=== PATIENT | female | born 1930 | race Caucasian/White ===

== ENCOUNTER 2017-10-05 07:30 | Outpatient (CLI) | payer MEDICARE | END 2017-10-05 07:31 | disposition home or self-care (01) | LOC: BICMAMMO 07:30 | PROVIDERS: ATTEND Internal Medicine | DX: Z12.31 Encounter for screening mammogram for malignant neoplasm of breast (principal); R92.1 Mammographic calcification found on diagnostic imaging of breast; Z80.3 Family history of malignant neoplasm of breast; Z85.89 Personal history of malignant neoplasm of other organs and systems | CPT/HCPCS: 77063; G0202; 77067 ==

== ENCOUNTER 2020-03-01 09:53 | Inpatient (IN) | payer MEDICARE ==
[~2020-03-01 09:53] MED LIST: Iopamidol 370 76% 100 ML VIAL ONE; Iopamidol-370 76% 500 ML 1 ML ONE
--- NOTE | 2020-03-01 10:13 | CT ---
CT HEAD WITHOUT IV CONTRAST COMPARISON: 03/09/2014 HISTORY: Level 1 stroke. Right-sided weakness and facial droop. TECHNIQUE: Axial CT imaging at 5 mm intervals from vertex through skull base without contrast FINDINGS: There is suggestion of subtle diminished attenuation in the left frontal and temporal lobes with decr ease in delineation of the lambert-white junction in this region. Subtle early acute left MCA distribution infarction cannot be entirely excluded. No definitive sulcal effacement is seen to sugge st edema in this distribution. No additional acute cortical infarction is seen. There is no evidence of hemorrhage, mass effect, or midline shift. Mild cerebral volume loss is again seen. Track er system is normal in size, shape, and position for the degree of sulcal atrophy. Areas of diminished attenuation are seen in each cerebellar hemisphere suggesting remote infarctions. Visualized paranasal sinuses are clear. Osseous structures appear intact. IMPRESSION: 1. Subtle decrease in lambert-white differentiation in the distribution of the left middle cerebral scooby ry. A subtle left MCA distribution early acute infarction cannot be entirely excluded based on this exam. MRI brain would be more sensitive study of choice for further evaluation of this finding and qu estionable area of infarction. 2. 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 3. Cerebral volume loss. 4. Above findings discussed Dr. Weaver the emergency department on 03/01/2020 at 1007 hours.
[2020-03-01 10:16] LABS: #Basophils 0.1 thou/uL (0.0-0.2); #Eosinphils 0.1 thou/uL (0.0-0.7); #Lymphocytes 2.9 thou/uL (1.20-3.40); #Monocytes 0.5 thou/uL (0.11-0.59); #Neutrophils 5.9 thou/uL (1.40-6.50); %Basophils 0.6 % (0.0-1.0); %Eosinophils 0.9 % (0.0-10.0); %Lymphocytes 30.9 % (21.0-51.0); %Monocytes 5.4 % (0.0-10.0); %Neutrophils 62.1 % (42.0-75.0); Hemoglobin 14.1 g/dL (12.0-16.0); Mean Corpuscular HGB CONC 31.5 g/dL (32.0-36.0); Mean Corpuscular Hemoglobin 29.6 pg (27.0-31.0); Mean Corpuscular Volume 93.9 fL (78.0-98.0); Platelet Count 227 thou/uL (130-400); RBC Distribution Width 13.2 % (11.5-14.5); Red Blood Cell (RBC) Count 4.77 mill/uL (4.20-5.40); White Blood Cell (WBC) Count 9.5 thou/uL (4.8-10.8)
[2020-03-01 10:23] LABS: INR-International Normal Ratio 0.9; PTT 26.1 SEC (22.9-36.1); Prothrombin Time 12.6 sec (12.0-14.7)
[2020-03-01 10:37] LABS: ALT (SGPT) Less than 7 U/L (8-55); AST (SGOT) 15 U/L (5-34); Albumin 2.9 g/dL (3.4-4.8); Alkaline Phosphatase 123 U/L (40-110); Anion Gap 14 mmol/L (10-20); BUN (Urea Nitrogen) 18 mg/dL (9.8-20.1); Bilirubin, Total 0.8 mg/dL (0.2-1.2); CK (CPK) 49 U/L (29-168); Calc. Creatinine Clearance 0 mL/min (70-130); Calcium 8.4 mg/dL (7.8-10.44); Carbon Dioxide 27 mmol/L (23-31); Chloride 102 mmol/L (98-107); Estimated GFR-MDRD 53; Globulin 2.8 g/dL (2.4-3.5); Glucose 136 mg/dL (83-110); Potassium 3.7 mmol/L (3.5-5.1); Protein, Total 5.7 g/dL (6.0-8.3); Sodium 139 mmol/L (136-145)
--- NOTE | 2020-03-01 11:03 | CT ---
EXAM: CT angiogram head and neck with IV contrast and 3-D reconstructions PROVIDED CLINICAL HISTORY: Right-sided weakness and facial droop. COMPARISON: None FINDINGS: Vascular calcifications are seen in the visualized thoracic aortic arch and descending thoracic aorta . There is a normal arrangement of the great vessels at the aortic arch which are patent with minimal vascular calcifications present. The bilateral subclavian arteries, innominate artery, and bi lateral common carotid arteries are patent. Vascular calcifications are seen at the carotid artery bifurcations bilaterally. There is mild (less than 50%) stenosis involving the bilateral internal carotid arteries. The bilateral vertebral arteries are patent. The basilar artery and posterior cerebral arteries are patent bilaterally. The anterior cerebral arteries and right middle cerebral artery are patent. There is abrupt occlusion of the M1 segment of the left middle cerebral artery. There is opacificatio n of branches of the more distal left MCA. No aneurysm is seen within the limitations of the technique of this exam. There is mild pleural thickening and volume loss seen dependently within the left upper lobe with min imal linear densities in the upper lobes bilaterally likely due to mild chronic lung changes. Small hypodense lesions are seen in each lobe of thyroid gland measuring less than 1 cm with a hypode nse lesion with slight heterogeneous enhancement seen involving the posterior aspect left lobe of thyroid gland. Calcification is seen in the right lobe of thyroid gland. The bilateral parotid and submandibular glands demonstrate a normal CT appearance. Prevertebral soft tissues have a normal appearance. There is gas seen within the venous structures in the upper chest likely due to contrast injection an d placement of a peripheral intravenous catheter. Degenerative changes are seen in the cervical spine. There is fusion of the C5 and C6 vertebral kinza s. Slight anterolisthesis of C4 on C5 is present. Multilevel facet degenerative changes are identified. Moderate to severe right-sided neural foraminal narrowing is seen at the C3-4 level due t o prominent facet hypertrophic changes and uncinate process hypertrophy. Moderate to severe right-sided neural foraminal narrowing is also seen at the C4-5 level. IMPRESSION: 1. Abrupt occlusion proximal M1 segment left middle cerebral artery 2. Less than 50% degree of narrowing involving the origin and proximal internal carotid arteries bila terally. 3. Patent bilateral vertebral arteries. 4. Hypodense lesions in each lobe of the thyroid gland. 5. Above findings were discussed with Dr. Weaver in the emergency department on 03/01/2020 at [address]
[2020-03-01] MEDS ORDERED: PHENYLEPHRINE-NS 100 MCG/ML 10 ML SYRINGE ONE (11:28)
[2020-03-01] MEDS ORDERED: Dexamethasone 20 MG/5 ML VIAL ONE (11:28)
[2020-03-01] MEDS ORDERED: Ondansetron PF 4 MG/2 ML Vial ONE (11:28)
[2020-03-01] MEDS ORDERED: Succinylcholine Chloride 20 MG/ML 10 ml SYRINGE FS ONE (11:28)
[2020-03-01] MEDS ORDERED: Labetalol HCl 100 MG/20 ML VIAL SLOW IVP PRN ×2 (11:38→13:00)
[2020-03-01] MEDS ORDERED: Acetaminophen 325 MG TAB PO PRN (11:38)
[2020-03-01] MEDS ORDERED: niCARdipine 25 MG in Sodium Chloride 0.9% 250 ML 250 ML IVPB PRN (11:38)
[2020-03-01] MEDS ORDERED: Heparin 10,000 UNITS/1 ML VIAL ONE (11:38)
[2020-03-01] MEDS ORDERED: Communication Order-Pharmacy FS ONE (11:38)
[2020-03-01] MEDS ORDERED: hydrALAZINE 20 MG/ML VIAL SLOW IVP PRN ×2 (11:38→13:00)
[2020-03-01] MEDS ORDERED: Acetaminophen 650 MG Suppository PR PRN (11:38)
[2020-03-01] MEDS ORDERED: Ondansetron ODT 4 MG TAB PO PRN (11:45)
[2020-03-01] MEDS ORDERED: Ondansetron PF 4 MG/2 ML Vial IVP PRN (11:45)
[2020-03-01] MEDS ORDERED: Fentanyl 100 MCG/2 ML VIAL ONE (11:57)
[2020-03-01] MEDS ORDERED: D5 0.9% NS w/ 20 mEq KCl 1,000 ML IV SCH (12:00)
[2020-03-01] MEDS ORDERED: Communication Order-Pharmacy FS SCH (13:00)
[2020-03-01] MEDS ORDERED: niCARdipine 25 MG in Sodium Chloride 0.9% 250 ML 240 ML IVPB PRN (13:00)
[2020-03-01 14:19] LABS: Actual Bicarbonate (HCO3a) 22.4 mEq/L (22-28); Base Excess (BEa) 1.1 mEq/L (-2.0 to +3.0); CO2 Tension 27.3 mmHg (35.0-45.0); Calcium, Ionized 1.03 mmol/L (1.12-1.30); Carboxyhemoglobin (COHb) 0.8 gm% (0.0-3.0); Hemoglobin (Hb) 14.9 g/dL (12.0-16.0); O2 Tension (PaO2), arterial 151.2 mmHg (> 60.0); Potassium - ABG Lab 3.19 mmol/L (3.70-5.30); pH, Arterial 7.53 (7.35-7.45)
[2020-03-01 14:23] LABS: ALV-art Gradient 99.875 (0-20); Puncture Site ART LINE
[2020-03-01 14:37] VITALS: BMI 21.3
[2020-03-01] MEDS ORDERED: Iopamidol 370 76% 100 ML VIAL ONE (15:10)
[2020-03-01] MEDS: D5 0.9% NS w/ 20 mEq KCl 1,000 ML IV SCH (15:25)
[2020-03-01] MEDS ORDERED: fentaNYL Citrate/PF 2,000 MCG in Sodium Chloride 0.9% 60 ML IV SCH (16:25)
[2020-03-01] MEDS ORDERED: Fentanyl BOLUS 250 ML IVPB PRN (16:25)
[2020-03-01] MEDS ORDERED: DISCONTINUE PREVIOUS NARCOTIC PAIN MEDICATIONS AND BENZODIAZEPINES FS SCH (16:25)
[2020-03-01] MEDS ORDERED: Propofol BOLUS 1,000 MG/100 ML VIAL IV PRN (16:25)
[2020-03-01] MEDS ORDERED: Propofol 1,000 MG/100 ML VIAL IV PRN (16:25)
[2020-03-01] MEDS ORDERED: Morphine 2 MG/ML SYRINGE SLOW IVP PRN (16:25)
[2020-03-01] MEDS ORDERED: Ventilator Sedation Protocol 1 EACH FS SCH (16:30)
--- NOTE | 2020-03-01 17:57 | HP ---
PRIMARY CARE PHYSICIAN: [facility] in [place]. CHIEF COMPLAINT: Stroke-like symptoms. HISTORY OF PRESENT ILLNESS: The patient is an 89-year-old female with atrial fibrillation, hypertension and mild dementia, was brought into the emergency room with above complaints. The patient currently lives at home with her son, Damian, contact #[phone]. Surrogate decision maker is the daughter Zohreh Larios, contact #[phone]. The patient is independent of activities of daily living. She ambulates with the help of a walker. She was last seen normal around 09:05 a.m. Around 09:06, she was found to have right-sided facial droop along with right-sided neglect. She also had altered mentation and was not following direction. EMS was called. She was air lifted to this facility. She received tPA. The CT angiogram showed abrupt occlusion of the proximal M1 segment of the left MCA. Dr. Gaxiola attempted a neuro intervention as well. At this time, the patient is intubated on mechanical ventilation. No information is available from the patient. History is obtained from the son at the bedside. PAST MEDICAL HISTORY: 1. History of atrial fibrillation, not an anticoagulation candidate due to GI bleeding and recurrent falls. 2. Hypertension. 3. Osteoporosis with compression fractures. 4. Hyperlipidemia. 5. COPD. 6. Diverticulosis. 7. Macular degeneration. 8. Do not resuscitate. 9. Mild dementia. 10. Chronic venous stasis in bilateral lower extremities. PAST SURGICAL HISTORY: 1. Appendectomy. 2. Resection of thyroid nodule. 3. Cholecystectomy. 4. Pacemaker placement. CURRENT HOME MEDICATIONS: Family to bring accurate list of medications. ALLERGIES: NO KNOWN DRUG ALLERGIES. SOCIAL HISTORY: As discussed above. She is . No smoking, alcohol or drug use. FAMILY HISTORY: Cannot be obtained from the patient due to current mentation. REVIEW OF SYSTEMS: Cannot be obtained from the patient due to current mentation. PHYSICAL EXAMINATION: VITAL SIGNS: On ER arrival, temperature of 96.3, respirations of 20, pulse rate of 83, blood pressure of 147/86, and O2 saturation of 96% on room air. GENERAL: This is an 89-year-old female, intubated on mechanical ventilation with altered mentation, not following commands. HEENT: Head, atraumatic and normocephalic. Pupils were sluggishly reacting to light. They were 2 mm bilaterally. Endotracheal tube noted. NECK: Supple. No JVD. No carotid bruit. LUNGS: Clear to auscultation bilaterally. No wheezing, rales or rhonchi. HEART: S1 and S2 present. Regular rate and rhythm. No rubs or gallops. ABDOMEN: Soft. Bowel sounds present. No guarding or rigidity. EXTREMITIES: There is 2+ edema in left lower extremity. There is compression dressing in the right lower extremity. SKIN: Warm and dry. LYMPH NODES: No palpable lymph nodes in the neck. NEUROLOGIC: Could not be done due to current mentation. PSYCHIATRIC: Could not be done due to current mentation. MUSCULOSKELETAL: No joint swelling or tenderness. LABORATORY DATA: CBC showed WBC of 9.5 with hemoglobin of 14.1, hematocrit of 44.7, and platelet of 227. PT/INR/PTT normal range. Chemistries showed sodium of 139, potassium of 3.7, chloride of 102, bicarb of 27, BUN of 18, and creatinine of 0.9. Bilirubin was 0.8. Troponin was negative. TSH 5.5. Albumin 2.9. DIAGNOSTIC DATA: CT scan of the brain was negative for acute findings. EKG by my review showed paced rhythm. IMPRESSION: 1. Acute cerebrovascular accident, status post tPA and neuro intervention. Suspected cardioembolic. 2. History of atrial fibrillation, not an anticoagulation candidate due to gastrointestinal bleeding and recurrent falls. 3. Mild dementia. 4. Hypertension. 5. Hyperlipidemia. 6. Chronic venous stasis. 7. Diverticulosis. 8. Moderate protein calorie malnutrition. 9. Chronic kidney disease, stage 3. PLAN: The patient will be monitored in the intensive care unit. We will follow tPA protocol. Echocardiogram will be obtained. We will get MRI of the brain in a.m. The patient is on mechanical ventilation at this time. Oven Dumper, Cardiology, and Neurology will be consulted. We will start aspirin 24 hours after the tPA. IV hydration for now. Code status was verified with the family. The patient will require 2 to 3 days for stabilization. Job ID: [id number]
[2020-03-01] MEDS: Atorvastatin Calcium 40 MG TAB PO SCH (21:38)
--- NOTE | 2020-03-02 00:13 | CON ---
DATE OF CONSULTATION: 03/01/2020 CHIEF COMPLAINT: Left MCA CVA. PRESENT ILLNESS: Ms. Proctor is an 89-year-old female who lives at home with her son. She was reportedly in good state of health this morning and had eaten breakfast. She was singing and communicative. Her son had gone to the store and upon his return noted that she was aphasic. She presented to the emergency room with the presumptive diagnosis of stroke. Brain CT and brain CT angio was performed showing acute occlusion of the proximal M1 branch of the left MCA. She subsequently underwent selective thrombectomy without complication. The patient is now admitted to the intensive care unit. She has not yet regained consciousness. I have discussed the case with her family. The patient reportedly has a history of atrial fibrillation. She took Coumadin in the past and at some point was converted to Pradaxa. Unfortunately, she had some bleeding complications and anticoagulant therapy was discontinued. Coumadin was never resumed. SOCIAL HISTORY: The patient is an 89-year-old female. She has lived independently with her son until the time of this admission. She has no allergy. She does not smoke or drink. She is retired having worked in the clerical field. Her home medicines include simvastatin 10 daily, potassium 20 mEq b.i.d., Levaquin, Lasix 20 daily, iron 325 daily. The family reports that she is a DNR status. PAST MEDICAL HISTORY: Remarkable for atrial fibrillation. She has some dementia. There is no history of malignancy or previous stroke. REVIEW OF SYSTEMS: Unobtainable from the patient. According to her family, she was doing well this morning before the sudden onset of this stroke. FAMILY HISTORY: Noncontributory. PHYSICAL EXAMINATION: VITAL SIGNS: Blood pressure 132/77, heart rate is 70, respiratory rate 29, saturation 99%. She is orally intubated receiving ongoing ventilatory support with a rate of 8, tidal volume 400, FiO2 35%. In general, she is an elderly female, intubated. HEENT shows mouth difficult to evaluate due to her endotracheal tube. Pupils sluggish bilaterally. I cannot assess her cranial nerves. NECK: No adenopathy or JVD. LUNGS: Rhonchi. Heart is regular and appears to be sinus rhythm by monitor. She has a grade 1 murmur. ABDOMEN: Soft. Bowel sounds are normal. There is no guarding or rebound. She has 2+ edema on the left. She has an Unna boot on the right lower, which her son says was caused by a minor skin tear. She does not respond to verbal stimuli. Her eyes are open, but I get no purposeful response. She has bilateral tremor of her hands. LABORATORY: CT head and CT angio as noted describing a left MCA stroke. White count is 9500, hemoglobin is 14.1. Blood gas includes pH 7.53, CO2 of 27, PO2 of 151, bicarbonate 22. This was obtained at a rate of 10 and 40%. Chemistries remarkable only for a normal BUN of 18, creatinine 0.99, albumin is 2.9. TSH is 5.55. IMPRESSION: 1. Left middle cerebral artery stroke with prompt presentation to the hospital followed by thrombectomy. She is in the ICU, has not yet had significant neurologic recovery. 2. Past history of atrial fibrillation. For a while she was on Coumadin, then converted to Pradaxa, but terminated due to complication. 3. History of dementia per son. PLAN: We will continue supportive therapies including ventilatory support. We can already begin to reduce the rate. She is a DNR status. At this time, her rhythm appears to be sinus and no additional intervention is required. Case including presentation, procedures, and prognosis discussed with son who is at the bedside. Job ID: [id number]
[2020-03-02] MEDS: D5 0.9% NS w/ 20 mEq KCl 1,000 ML IV SCH ×2 (02:57→18:38)
[2020-03-02] MEDS: Lorazepam 2 MG/ML VIAL SLOW IVP PRN ×2 (03:24→14:25)
[2020-03-02 05:55] LABS: #Lymphocytes 1.4 thou/uL (1.20-3.40); #Neutrophils 13.4 thou/uL (1.40-6.50); %Eosinophils 0.1 % (0.0-10.0); %Lymphocytes 8.7 % (21.0-51.0); %Monocytes 6.4 % (0.0-10.0); %Neutrophils 84.8 % (42.0-75.0); Hemoglobin 13.9 g/dL (12.0-16.0); Mean Corpuscular HGB CONC 31.5 g/dL (32.0-36.0); Mean Corpuscular Volume 92.3 fL (78.0-98.0); Mean Platelet Volume 8.2 fL (7.4-10.4); Platelet Count 238 thou/uL (130-400); RBC Distribution Width 13.3 % (11.5-14.5); Red Blood Cell (RBC) Count 4.79 mill/uL (4.20-5.40); White Blood Cell (WBC) Count 15.8 thou/uL (4.8-10.8)
[2020-03-02 06:22] LABS: ALT (SGPT) 8 U/L (8-55); AST (SGOT) 18 U/L (5-34); Albumin 2.6 g/dL (3.4-4.8); Alkaline Phosphatase 112 U/L (40-110); Anion Gap 15 mmol/L (10-20); BUN (Urea Nitrogen) 19 mg/dL (9.8-20.1); Bilirubin, Total 0.9 mg/dL (0.2-1.2); Calc. Creatinine Clearance 28 mL/min (70-130); Calcium 8.1 mg/dL (7.8-10.44); Carbon Dioxide 21 mmol/L (23-31); Cardiac Risk 2.3 (Less than 4.5); Chloride 111 mmol/L (98-107); Cholesterol 124 mg/dl (< 200 Desired); Estimated GFR-MDRD 44; Globulin 2.6 g/dL (2.4-3.5); Glucose 151 mg/dL (83-110); HDL Cholesterol 55 mg/dL (>60 Neg Risk); LDL Cholesterol, Calculated 56 mg/dL; Potassium 3.8 mmol/L (3.5-5.1); Protein, Total 5.2 g/dL (6.0-8.3); Sodium 143 mmol/L (136-145); Triglycerides 64 mg/dL (Less than 150)
--- NOTE | 2020-03-02 07:54 | RAD ---
Chest one view HISTORY: Chest pain. Intubated. COMPARISON: 04/30/2016. FINDINGS: Cardiac silhouette is magnified by projection. Pulmonary vasculature are unremarkable. Mediastinum is slightly shifted leftward. Chronic opacity at the left posterior medial lung base has the appearance of atelectasis. Blunting of the left lateral costophrenic angle suggests a small amount of pleural fluid. Tip of an endotracheal catheter projects just above the level of the clavicular heads.. Dual lead lef t subclavian cardiac electronic device is in place. Increased density projecting over the right suprahilar level favored to represent extrinsic artifact. No evidence of pneumothorax. Osseous structures are demineralized. IMPRESSION : Endotracheal catheter tip just above the level of the clavicular heads. Please consider advancing chastity roximately 2 cm for better positioning. Atelectasis left lower lobe. Small left pleural effusion. Osteoporosis.
[2020-03-02 08:12] LABS: Actual Bicarbonate (HCO3a) 21.3 mEq/L (22-28); Base Excess (BEa) 0.4 mEq/L (-2.0 to +3.0); Calcium, Ionized 1.06 mmol/L (1.12-1.30); Carboxyhemoglobin (COHb) 0.5 gm% (0.0-3.0); O2 Tension (PaO2), arterial 124.1 mmHg (> 60.0); Potassium - ABG Lab 3.76 mmol/L (3.70-5.30)
[2020-03-02 08:24] LABS: CO2 Tension 25.2 mmHg (35.0-45.0); pH, Arterial 7.55 (7.35-7.45)
[2020-03-02 08:25] LABS: Puncture Site LINE
[2020-03-02] MEDS: Famotidine/PF 20 mg/2ml Vial SLOW IVP SCH (09:26)
[2020-03-02] MEDS: Famotidine 20 MG TAB PO SCH (09:27)
--- NOTE | 2020-03-02 10:48 | PRG ---
DATE OF SERVICE: 03/02/2020 SUBJECTIVE: Maile Proctor is an 89-year-old female, who is a DNR, just finished talking to her daughter, Bhavya from [place]. 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 She said her mother wants to be a DNR, has already been a DNR. Unfortunately, events were such that she underwent emergency thrombectomy and tPA for a right middle artery clot. She now was agitated on the vent and received some Ativan. OBJECTIVE: VITAL SIGNS: This morning, blood pressure 136/55, pulse 70, respirations 20, saturations 90%. CHEST: Decreased breath sounds. No wheezing. CARDIAC: Normal S1 and S2. No gallops. ABDOMEN: No masses. LABORATORY DATA: PO2 is 124, pCO2 is 25, pH 7.55. White count 15,000, H and H of 13 and 43, platelet count is 238. Lytes are normal. Chest x-ray now shows evidence of new infiltrates. Previous pacemaker. IMPRESSION: 1. Status post emergency tPA and thrombectomy for a right middle cerebral artery thrombus. 2. Encephalopathy. 3. Advanced age. 4. Mild azotemia. 5. Possibly aspiration, atrial fibrillation. PLAN: We will hold sedation. We will try and wean hopefully in the next 48 hours. Family is adamant about no CPR to honor the patient's wishes. One-half hour of critical time. Job ID: [id number]
--- NOTE | 2020-03-02 11:03 | CT ---
CT OF THE BRAIN WITHOUT CONTRAST: Date: 03/02/2020 COMPARISON: 03/01/2020. HISTORY: Left MCA distribution infarction, status post TPA. TECHNIQUE: Multiple contiguous axial images were obtained in a CT of the brain without contrast. FINDINGS: There are scattered hypodensities in the subcortical and periventricular white matter, likely seconda ry to small vessel ischemic disease. No large confluent infarction is seen. There is no evidence of h ydrocephalus, intracranial hemorrhage, or extra-axial fluid collection. The calvarium and overlying soft tissues are unremarkable. The visualized paranasal sinuses and masto id air cells are well aerated. IMPRESSION: No evidence of acute intracranial abnormality. POS: EAA
[2020-03-02] MEDS ORDERED: Aspirin 300 MG Suppository PR SCH ×2 (12:00→12:30)
[2020-03-02] MEDS: Cefepime 1 GM in Sodium Chloride 0.9% 100 ML IVPB SCH ×2 (12:33→20:52)
--- NOTE | 2020-03-02 13:13 | CON ---
DATE OF CONSULTATION: 03/02/2020 REASON FOR CONSULTATION: Stroke. HISTORY OF PRESENT ILLNESS: Ms. Maile Proctor is an 89-year-old female with history significant for atrial fibrillation, hypertension, and mild dementia, presented to [facility] with altered mental status, right facial droop and right-sided weakness. The patient lives at home with her family and is able to take care of herself and carry out activities of daily living. She walks with the help of a walker. She was last seen normal around 9 a.m., yesterday, around 09: 06, the son noticed right facial droop with right-sided neglect. She also has altered mental status. EMS was called and she was airlifted to [facility]. The patient received tPA. CT angiogram showed occlusion of the proximal M1 segment of the left MCA. Dr. Gaxiola attempted a neuro intervention and she was also intubated on mechanical ventilation to protect her airway. The family member denies any nausea, vomiting, headache, associated dizziness, loss of vision, loss of consciousness associated with the episode. REVIEW OF SYSTEMS: All 10 systems were reviewed and were negative except pertinent positives mentioned in the HPI. PAST MEDICAL HISTORY: Atrial fibrillation, hypertension, osteoporosis, COPD, hyperlipidemia, diverticulosis, macular degeneration, dementia, chronic venous stasis in lower extremities. PAST SURGICAL HISTORY: Appendectomy, status post thyroid nodule resection, cholecystectomy, pacemaker placement. ALLERGIES: NO KNOWN DRUG ALLERGIES. SOCIAL HISTORY: Lives with son The son denies smoking, alcohol, illegal drug abuse. FAMILY HISTORY: Not significant. PHYSICAL EXAMINATION: VITAL SIGNS: Blood pressure 140/80, pulse 80, respiratory rate 18. CVS: Regular rate and rhythm. CHEST: Clear. ABDOMEN: Soft. NEUROLOGIC: Mental status; the patient is extremely somnolent, she is sedated and intubated. Does not follow commands. Does not maintain eye contact. Cranial nerves; pupils 4 to 5 mm round, and reactive to light. Right facial droop. Tongue midline. Corneals positive. Gag positive. Right gaze preference. Sensory, withdraws to nailbed pressure bilaterally, left greater than right. Reflexes 2+ bilaterally. Cerebellar: could not be performed secondary to the patient's mentation. Gait could not be tested. Motor, muscle tone and bulk are decreased. Right hemiparesis. .Positive twitching LABORATORY DATA: I reviewed the labs which were essentially unremarkable. I also reviewed the CT scan which was negative for acute changes. ASSESSMENT AND PLAN: Ms. Collazo is an 89-year-old female with left MCA distribution infarction, status post tPA. Consulted by Neurology for further management. Consider an MRI of the brain. She is status post tPA. Repeat head CT post 24 hours did not show any bleed. Neuro checks every 2 hours. Resume aspirin for secondary stroke prevention. Echocardiogram reviewed which shows ejection fraction of 60% to 65%. Aortic stenosis is present. No thrombus or PFO is noted. Lipid panel within normal range. Resume aspirin for secondary stroke prevention. Continue home medications. Continue medical management per primary team. Rhythmic twitching noted on examination. . EEG reviewed which was consistent with moderate generalized nonspecific cerebral dysfunction with spikes but no electrographic seizures, frontal motor seizures are difficult to capture on the scalp recording. Consider Ativan 2 mg IV if twitching continues and start Keppra 1000 mg q.12 after loading dose of 1500 mg IV. 0bserve seizure precautions. We will continue to follow. Plan discussed with Dr. Norton. Thank you for the consult. Job ID: [id number] [facility]ALTH CENTERMelissa
[2020-03-02] MEDS ORDERED: Lorazepam 2 MG/ML VIAL SLOW IVP SCH (14:45)
[2020-03-02] MEDS ORDERED: levETIRAcetam In NaCl (Iso-Os) 1,500 MG in Premix Bag 1 BAG IVPB SCH (14:45)
[2020-03-02] MEDS ORDERED: Sodium Chloride 0.9% 250 ML IV SCH (15:15)
--- NOTE | 2020-03-02 16:32 | EEG ---
Referring Physician: Scott TANNER EEG # [id number] TEST TYPE: CONTINUOUS EXTENDED VIDEO EEG RECORDING REPORT: This EEG was performed using 24 channel [employer] video digital EEG machine with 24 disc electrodes. This was an extended 2 hour 8 minutes of inpatient video EEG recording. Digital analysis was done with spike and seizure detection revealed no abnormalities. BACKGROUND: The posterior background rhythm was no observed. HYPERVENTILATION: Not performed. PHOTIC STIMULATION: Not performed SLEEP: No stage change was observed. EEG DIAGNOSIS: 1.) Generalized irregular, at times sharp theta activity seen throughout the recording intermixed with occasional spikes. 2.) Absence of posterior background rhythm. CLINICAL INTERPRETATION: THIS EEG IS CONSISTENT WITH INTERICTAL EXPRESSION OF PARTIAL EPILEPSY IN THE SETTING OF MODERATE GENERALIZED NONSPECIFIC CEREBRAL DYSFUNCTION. NO ELECTROGRAPHIC SEIZURES CAPTURED DURING THE RECORDING. Manager Endoscopy: kenna Dietary Aide Cook: EEG.LAUREN FLAHERTY
[2020-03-02] MEDS: Atorvastatin Calcium 40 MG TAB PO SCH (20:38)
[2020-03-02] MEDS: levETIRAcetam In NaCl (Iso-Os) 1,000 MG in Premix Bag 1 BAG IVPB SCH (20:51)
[2020-03-02] MEDS ORDERED: Enoxaparin Sodium 40 MG/0.4 ML SYRINGE SC SCH (21:00)
[2020-03-03] MEDS: D5 0.9% NS w/ 20 mEq KCl 1,000 ML IV SCH ×3 (00:16→16:19)
--- NOTE | 2020-03-03 01:02 | CON ---
DATE OF CONSULTATION: 03/02/2020 INDICATION FOR CONSULTATION: An 89-year-old female with a long history of atrial fibrillation, who had actually undergone AVJ ablation and pacemaker insertion several years ago, has chronic atrial fibrillation, was unable to take anticoagulation due to 2 severe GI bleeds in the past, and she had been placed on just a baby aspirin and had been doing relatively well since 2016, but then yesterday developed aphasia and unresponsiveness and was found to have an acute CVA, which was felt to be due to her atrial fibrillation. She did undergo a thrombectomy by Neurology and also was given tPA, I believe. At this time, she remains on the ventilator. She is somewhat unresponsive. She has had one seizure according to the staff. She does move all extremities, however, but this appears to be just a type of withdrawal, it is not necessarily purposeful movement. At this time, I would agree that she has suffered a significant CVA due to her atrial fibrillation. The heart rate is in the 70s. She is pacing a 100% of the time after her AVJ ablation. She does have a history of dementia, which according to the daughter has become significantly worse in the last 6 months. She also has other medical problems, but at this time, from a cardiac standpoint, the overall cardiac status is actually relatively stable despite the atrial fibrillation. PAST MEDICAL HISTORY: Significant for atrial fibrillation, GI bleed. She is unable to take oral anticoagulation due to significant GI bleeds in the past. She has a history of hypertension, dementia, hypercholesterolemia, osteoporosis. She has had compression fractures in the past, and recently she had a fall earlier this year, and since that time has been unable to get in and out of her chair by herself without assistance. She has COPD. She has had a history of diverticulosis. She has macular degeneration and almost has blindness. She has had a history of pneumonias in the past. REVIEW OF SYSTEMS: Cannot be obtained. MEDICATIONS: Prior to admission included: 1. Simvastatin. 2. Potassium. 3. Ferrous sulfate. 4. Furosemide 20 mg a day. 5. Levaquin on a p.r.n. basis as needed for infections. She has also been placed now on: 1. Decadron. 2. Zofran. 3. Heparin. 4. She is on labetalol. 5. Tylenol. 6. IV hydralazine.. 7. Also nicardipine as needed. 8. Medications for anesthesia while she is on the ventilator. 9. Aspirin 300 mg a day. ALLERGIES: THERE ARE NO KNOWN DRUG ALLERGIES, BUT SHE HAS BEEN INTOLERANT TO THE ORAL ANTICOAGULATION IN THE PAST DUE TO SIGNIFICANT GI BLEEDING. LABORATORY DATA: Shows a WBC of 15.8, hemoglobin was 13.9, and platelet count was 238,000. Sodium was 143; chloride was 111; potassium was 3.8; creatinine is 1.17, on admission was 0.99; BUN is 19; and blood sugar was 151. PHYSICAL EXAMINATION: GENERAL: Reveals an elderly ill-appearing female, very fragile, who is on the ventilator. VITAL SIGNS: Her blood pressure is 154/70 at this time, heart rate is 70 and regular, respiratory rate is per the ventilator and is approximately 12 breaths per minute. HEENT: Shows the head to be normocephalic. Sparse hair. Otherwise, no significant trauma was noted. I cannot hear any significant carotid bruits at this time. CHEST: Has a few basilar rales. CARDIOVASCULAR: Reveals a regular rhythm at this time. She has systolic murmur at the apex, also at the lower sternal border. ABDOMEN: Soft and nontender. Positive bowel sounds are present. EXTREMITIES: Showed mild lower extremity edema. SKIN: Shows multiple areas of ecchymosis. NEUROLOGICAL: The patient is unresponsive on the ventilator at this time. IMPRESSION: 1. The patient with chronic atrial fibrillation, who has suffered a cerebrovascular accident, likely due to embolic phenomenon due to the atrial fibrillation. She has not been a candidate for several years for oral anticoagulation due to two serious GI bleeds. There is no further cardiac workup that I can suggest at this time. We will need to continue to monitor her. I believe she has been DNR. The family is aware of her grave situation. 2. History of hypertension, which is on the high side at this time, but is not significantly elevated. We will continue to monitor this and always add medications as needed in the form of IV medications, certainly IV Lopressor or labetalol would be acceptable. 3. History of dementia. According to the family, this has worsened significantly and she is unable to actually perform her own daily living responsibilities or activities. She pretty much sits in the chair or the bed the majority of the time. For the remainder of her assessment and plan, I would agree with the notes already dictated by the hospitalist. I will be more than happy to continue to follow the patient with you, but I think this situation is in agreement that most likely the patient may be extubated in the next 24-48 hours to see whether or not she would survive since she is a DNR and has significant dementia and is otherwise a very ill female. Job ID: [id number]
[2020-03-03 04:16] LABS: #Lymphocytes 1.6 thou/uL (1.20-3.40); #Monocytes 0.9 thou/uL (0.11-0.59); #Neutrophils 12.8 thou/uL (1.40-6.50); %Basophils 0.2 % (0.0-1.0); %Eosinophils 0.1 % (0.0-10.0); %Lymphocytes 10.2 % (21.0-51.0); %Monocytes 5.6 % (0.0-10.0); %Neutrophils 83.9 % (42.0-75.0); Hemoglobin 12.7 g/dL (12.0-16.0); Mean Corpuscular HGB CONC 31.6 g/dL (32.0-36.0); Mean Corpuscular Hemoglobin 29.6 pg (27.0-31.0); Mean Corpuscular Volume 93.5 fL (78.0-98.0); Mean Platelet Volume 8.4 fL (7.4-10.4); Platelet Count 188 thou/uL (130-400); RBC Distribution Width 13.6 % (11.5-14.5); Red Blood Cell (RBC) Count 4.28 mill/uL (4.20-5.40); White Blood Cell (WBC) Count 15.2 thou/uL (4.8-10.8)
[2020-03-03 04:38] LABS: Anion Gap 12 mmol/L (10-20); BUN (Urea Nitrogen) 21 mg/dL (9.8-20.1); Calc. Creatinine Clearance 26 mL/min (70-130); Calcium 7.6 mg/dL (7.8-10.44); Chloride 117 mmol/L (98-107); Estimated GFR-MDRD 40; Glucose 117 mg/dL (83-110); Potassium 3.8 mmol/L (3.5-5.1); Sodium 145 mmol/L (136-145)
[2020-03-03 07:44] LABS: Actual Bicarbonate (HCO3a) 19.3 mEq/L (22-28); Base Excess (BEa) -4.5 mEq/L (-2.0 to +3.0); Calcium, Ionized 1.14 mmol/L (1.12-1.30); Carboxyhemoglobin (COHb) 0.6 gm% (0.0-3.0); Hemoglobin (Hb) 12.7 g/dL (12.0-16.0); O2 Tension (PaO2), arterial 96.7 mmHg (> 60.0); Potassium - ABG Lab 3.72 mmol/L (3.70-5.30)
--- NOTE | 2020-03-03 07:54 | RAD ---
Chest one view HISTORY: Intubated. Dyspnea. Follow-up. COMPARISON: 03/02/2020. FINDINGS: Cardiac silhouette and mediastinum are now shifted more leftward. 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 Pulmonary vasculature upper limits of normal. Tip of the endotracheal catheter is now the level of the clavicular heads. No evidence of pneumothorax. IMPRESSION : Worsening left lower lobe atelectasis.
[2020-03-03] MEDS: Famotidine/PF 20 mg/2ml Vial SLOW IVP SCH (08:52)
[2020-03-03] MEDS: Cefepime 1 GM in Sodium Chloride 0.9% 100 ML IVPB SCH ×2 (08:52→20:38)
[2020-03-03] MEDS: Famotidine 20 MG TAB PO SCH (08:53)
--- NOTE | 2020-03-03 08:57 | PDOC.HOSPP ---
- Subjective Encounter Date: 03/02/20 Encounter Time: 15:00 non-verbal Subjective: Patient seen and examined for Acute CVA s/p TPA. On Vent. No overnight events - Objective Vital Signs & Weight: Vital Signs (12 hours) Temp Pulse Resp BP Pulse Ox 03/03/20 08:00 21 H 03/03/20 07:48 100 03/03/20 07:01 70 155/83 H 03/03/20 07:00 98.8 F 03/03/20 06:00 19 03/03/20 04:00 99.3 F 18 03/03/20 03:55 70 145/82 H 03/03/20 02:00 16 03/03/20 00:00 98.8 F 17 03/02/20 22:28 70 130/63 03/02/20 22:00 15 Weight Admit Weight 120 lb Weight 120 lb 9.486 oz Most Recent Monitor Data Heart Rate from ECG 70 NIBP 151/93 NIBP BP-Mean 112 Respiration from ECG 13 SpO2 99 I&O: 03/02/20 03/03/20 03/04/20 06:59 06:59 06:59 Intake Total 901 2363 Output Total 1075 630 50 Balance -174 1733 -50 Result Diagrams: 03/03/20 03:56 03/03/20 03:56 Radiology Reviewed by me: Yes (CT brain - reviewed) EKG Reviewed by me: Yes (Tele SR) Hospitalist ROS - Review of Systems ROS unobtainable: due to mental status - Medication Medications: Active Medications Generic Name Dose Route Start Last Admin Trade Name Freq PRN Reason Stop Dose Admin Aspirin 325 mg 03/03/20 09:00 03/03/20 08:52 Aspirin PO Not Given DAILY KENDRICK Atorvastatin Calcium 40 mg 03/01/20 21:00 03/02/20 20:38 Lipitor PO Not Given HS KENDRICK Famotidine 20 mg 03/02/20 09:00 03/03/20 08:52 Pepcid SLOW IVP 20 mg DAILY KENDRICK Administration Famotidine 20 mg 03/02/20 09:00 03/03/20 08:53 Pepcid PO Not Given DAILY KENDRICK Nicardipine HCl 25 mg/ Sodium 250 mls @ 0 mls/hr 03/01/20 13:00 03/01/20 15: 23 Chloride IVPB 250 mls INF PRN Administration SBP > 180 or DBP > 105 Protocol Titrate Cefepime HCl 1 gm/ Sodium 100 mls @ 200 mls/hr 03/02/20 09:00 03/03/20 08:52 Chloride IVPB 100 mls Q12HR KENDRICK Administration Potassium Chloride/Dextrose/Sod Cl 1,000 mls @ 100 mls/hr 03/02/20 13:04 05:33 D5 0.9% Ns W/ 20 Meq Kcl IV 1,000 mls .Q10H KENDRICK Administration Levetiracetam 1,000 mg/ Device 100 mls @ 200 mls/hr 03/02/20 21:00 03/02/20 20:51 IVPB 100 mls BID KENDRICK Administration Labetalol HCl 10 mg 03/01/20 13:00 03/01/20 14:21 Normodyne SLOW IVP 10 mg Q10MIN PRN Administration SBP > 180 or DBP > 105 Lorazepam 2 mg 03/01/20 16:25 03/02/20 14:25 Ativan SLOW IVP 03/31/20 16:25 2 mg Q1H PRN Administration Breakthrough agitation Morphine Sulfate 2 mg 03/01/20 16:25 03/02/20 21:48 Morphine SLOW IVP 03/31/20 16:25 2 mg Q1H PRN Administration BREAKTHROUGH PAIN/Agitation - Exam General Appearance: NAD General - other findings: on Vent Neck: supple, no JVD Heart: RRR, no gallops, no rubs, normal peripheral pulses Respiratory: no wheezes, no rales, normal chest expansion, rhonchi Gastrointestinal: soft, no hepatomegaly, no guarding, no rigidity Extremities: no cyanosis, no clubbing, no edema Neurological - other findings: Neuro/Psych - cannot assess due to current mentation, Pt opens eyes Hosp A/P - Plan plan discussed w/ family, DVT proph w/lovenox, DVT proph w/SCDs 1. Acute cerebrovascular accident, status post tPA and neuro intervention. Suspected cardioembolic. 2. History of atrial fibrillation, not an anticoagulation candidate due to gastrointestinal bleeding and recurrent falls. 3. Mild dementia. 4. Hypertension. 5. Hyperlipidemia. 6. Chronic venous stasis. 7. Diverticulosis. 8. Moderate protein calorie malnutrition. 9. Chronic kidney disease, stage 3. PLAN: Cont CCU monitoring Await Echo Cont ASA EEG today Cont IVF DNR verified. Cont other meds as above
[2020-03-03] MEDS ORDERED: Aspirin 325 MG TAB PO SCH (09:00)
[2020-03-03] MEDS ORDERED: Aspirin 325 mg Enteric Coated Tablet PO SCH (09:00)
[2020-03-03] MEDS ORDERED: DC Sedation Protocol FS ONE (09:01)
[2020-03-03] MEDS: levETIRAcetam In NaCl (Iso-Os) 1,000 MG in Premix Bag 1 BAG IVPB SCH ×2 (09:12→20:38)
--- NOTE | 2020-03-03 09:40 | PRG ---
DATE OF SERVICE: 03/03/2020 SUBJECTIVE: Maile Proctor is an 89-year-old female, status post CVA, status post tPA, status post emergency embolectomy. She has 2 daughters and a son, who are today at the bedside. They stated they wanted no longer her mother to be on the vent. As per their wishes, she will be extubated. She is slightly more responsive. She has had no sedation all night except for apparently being on morphine. She seems to be nodding. OBJECTIVE: VITAL SIGNS: Respiratory rate 21, blood pressure 151/93, pulse 118, saturations 99%. CHEST: Decreased breath sounds. No wheezing. CARDIAC: Normal S1 and S2. No gallop. ABDOMEN: Soft. NEUROLOGIC: She moves all 4 extremities. LABORATORY DATA: PO2 is 96, pCO2 is 32, pH 7.40, rate of 8, 35%. Lytes are normal. Creatinine 1.2. X-ray shows rotation, but no obvious masses or infiltrates. She had a repeat CT brain done postprocedure, it shows no evidence of any acute intracranial abnormality. IMPRESSION AND PLAN: Status post cerebrovascular accident, tPA, and embolectomy; advanced age; DNR; high cholesterol; and severe dementia as per the family. She will be extubated. Comfort care. Palliative Care is being called in for help. One-half hour of Critical Care time. Job ID: [id number]
--- NOTE | 2020-03-03 11:41 | PDOC.HOSPP ---
- Subjective Encounter Date: 03/03/20 Subjective: NEUROLOGY PROGRESS NOTE Patient is extubated around 9 am. Family opted for hospice. - Objective Vital Signs & Weight: Vital Signs (12 hours) Temp Pulse Resp BP Pulse Ox 03/03/20 11:00 98.5 F 03/03/20 08:00 21 H 03/03/20 07:48 100 03/03/20 07:01 70 155/83 H 03/03/20 07:00 98.8 F 03/03/20 06:00 19 03/03/20 04:00 99.3 F 18 03/03/20 03:55 70 145/82 H 03/03/20 02:00 16 03/03/20 00:00 98.8 F 17 Weight Admit Weight 120 lb Weight 120 lb 9.486 oz Most Recent Monitor Data Heart Rate from ECG 70 NIBP 129/62 NIBP BP-Mean 84 Respiration from ECG 24 SpO2 98 I&O: 03/02/20 03/03/20 03/04/20 06:59 06:59 06:59 Intake Total 901 2363 Output Total 1075 630 300 Balance -174 1733 -300 Result Diagrams: 03/03/20 03:56 03/03/20 03:56 Radiology Reviewed by me: Yes EKG Reviewed by me: Yes Hospitalist ROS - Review of Systems ROS unobtainable: due to mental status - Medication Medications: Active Medications Generic Name Dose Route Start Last Admin Trade Name Freq PRN Reason Stop Dose Admin Aspirin 325 mg 03/03/20 09:00 03/03/20 08:52 Aspirin PO Not Given DAILY KENDRICK Atorvastatin Calcium 40 mg 03/01/20 21:00 03/02/20 20:38 Lipitor PO Not Given HS KENDRICK Famotidine 20 mg 03/02/20 09:00 03/03/20 08:52 Pepcid SLOW IVP 20 mg DAILY KENDRICK Administration Famotidine 20 mg 03/02/20 09:00 03/03/20 08:53 Pepcid PO Not Given DAILY KENDRICK Nicardipine HCl 25 mg/ Sodium 250 mls @ 0 mls/hr 03/01/20 13:00 03/01/20 15: 23 Chloride IVPB 250 mls INF PRN Administration SBP > 180 or DBP > 105 Protocol Titrate Cefepime HCl 1 gm/ Sodium 100 mls @ 200 mls/hr 03/02/20 09:00 03/03/20 08:52 Chloride IVPB 100 mls Q12HR KENDRICK Administration Potassium Chloride/Dextrose/Sod Cl 1,000 mls @ 100 mls/hr 03/02/20 13:04 05:33 D5 0.9% Ns W/ 20 Meq Kcl IV 1,000 mls .Q10H KENDRICK Administration Levetiracetam 1,000 mg/ Device 100 mls @ 200 mls/hr 03/02/20 21:00 03/03/20 09:12 IVPB 100 mls BID KENDRICK Administration Labetalol HCl 10 mg 03/01/20 13:00 03/01/20 14:21 Normodyne SLOW IVP 10 mg Q10MIN PRN Administration SBP > 180 or DBP > 105 - Exam General Appearance: awake alert Eye: PERRL, anicteric sclera ENT: normocephalic atraumatic, no oropharyngeal lesions, moist mucosa Neck: supple Heart: RRR Respiratory: CTAB Gastrointestinal: soft Extremities: no cyanosis Skin: normal turgor, no lesions, no rashes Neurological: no new deficit Hosp A/P (1) Altered mental status Code(s): R41.82 - ALTERED MENTAL STATUS, UNSPECIFIED Status: Acute (2) CVA (cerebral vascular accident) Code(s): I63.9 - CEREBRAL INFARCTION, UNSPECIFIED Status: Acute - Plan plan discussed w/ family Consults: Hospice, Palliative Care 89 year old with acute cerebrovascular accident, status post tPA and neurological intervention. for suspected cardioembolic stroke. EEG reviewed which does not reveal subclinical seizures. 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 Continue medical management per primary team. Long discussion with the daughter regarding prognosis. Family opted for hospice and she was extubated today at 9 am. Palliative care team on board. Plan discussed with the daughter
--- NOTE | 2020-03-03 13:33 | PDOC.HOSPP ---
- Subjective Encounter Date: 03/03/20 Encounter Time: 12:30 Subjective: Patient seen and examined for acute CVA s/p TPA. Extubated. No overnight events - Objective Vital Signs & Weight: Vital Signs (12 hours) Temp Pulse Resp BP BP Pulse Ox 03/03/20 12:15 99 03/03/20 12:13 97.9 F 68 18 146/81 H 99 03/03/20 11:00 98.5 F 03/03/20 09:05 79 20 97 03/03/20 08:00 21 H 03/03/20 07:48 100 03/03/20 07:01 70 155/83 H 03/03/20 07:00 98.8 F 03/03/20 06:00 19 03/03/20 04:00 99.3 F 18 03/03/20 03:55 70 145/82 H 03/03/20 02:00 16 Weight Admit Weight 120 lb Weight 120 lb 9.486 oz Most Recent Monitor Data Heart Rate from ECG 70 NIBP 129/62 NIBP BP-Mean 84 Respiration from ECG 24 SpO2 98 I&O: 03/02/20 03/03/20 03/04/20 06:59 06:59 06:59 Intake Total 901 2363 657 Output Total 1075 630 350 Balance -174 1733 307 Result Diagrams: 03/03/20 03:56 03/03/20 03:56 EKG Reviewed by me: Yes (Tele SR ) Hospitalist ROS - Review of Systems ROS unobtainable: due to mental status - Medication Medications: Active Medications Generic Name Dose Route Start Last Admin Trade Name Freq PRN Reason Stop Dose Admin Aspirin 325 mg 03/03/20 09:00 03/03/20 08:52 Aspirin PO Not Given DAILY KENDRICK Atorvastatin Calcium 40 mg 03/01/20 21:00 03/02/20 20:38 Lipitor PO Not Given HS KENDRICK Famotidine 20 mg 03/02/20 09:00 03/03/20 08:52 Pepcid SLOW IVP 20 mg DAILY KENDRICK Administration Famotidine 20 mg 03/02/20 09:00 03/03/20 08:53 Pepcid PO Not Given DAILY KENDRICK Cefepime HCl 1 gm/ Sodium 100 mls @ 200 mls/hr 03/02/20 09:00 03/03/20 08:52 Chloride IVPB 100 mls Q12HR KENDRICK Administration Potassium Chloride/Dextrose/Sod Cl 1,000 mls @ 100 mls/hr 03/02/20 13:04 05:33 D5 0.9% Ns W/ 20 Meq Kcl IV 1,000 mls .Q10H KENDRICK Administration Levetiracetam 1,000 mg/ Device 100 mls @ 200 mls/hr 03/02/20 21:00 03/03/20 09:12 IVPB 100 mls BID KENDRICK Administration Labetalol HCl 10 mg 03/01/20 13:00 03/01/20 14:21 Normodyne SLOW IVP 10 mg Q10MIN PRN Administration SBP > 180 or DBP > 105 - Exam General - other findings: Appears comfortable Heart: RRR, no gallops Respiratory: no wheezes, no rales Gastrointestinal: soft, no guarding, no rigidity Extremities: no cyanosis Hosp A/P - Plan DVT proph w/lovenox, DVT proph w/SCDs 1. Acute cerebrovascular accident, status post tPA and embolectomy. ? cardioembolic. 2. History of atrial fibrillation, not an anticoagulation candidate due to gastrointestinal bleeding and recurrent falls. 3. Mild dementia. 4. Hypertension. 5. Hyperlipidemia. 6. Chronic venous stasis. 7. Diverticulosis. 8. Moderate protein calorie malnutrition. 9. Chronic kidney disease, stage 3. PLAN: Extubated Await Hospice eval Cont comfort measures
--- NOTE | 2020-03-03 15:04 | CCLSPC ---
DATE: 03/01/20 SURGEON: Angel Gaxiola M.D. The patient is an 89-year-old female whose baseline status is highly functional given her age. She do es carry a diagnosis of dementia but despite that diagnosis is relatively independent at home. She wa s brought in by her son who witnessed abrupt onset of altered sensorium as well as dense hemiparesis on the right side. Once she was in the ER, she underwent noncontrast head CT which was negative for h emorrhage. TPA was mixed and administered at that time. She subsequently underwent CT angiogram which shows occlusion of the left middle cerebral artery. I was consulted by the ER and we decided to move forward with angiography with the potential for mechanical thrombectomy. I reached out to her son and discussed with him by phone, risks, benefits and alternatives of the pro posed treatment. He understands. He asked questions and I answered those and I believe he is well inf ormed with respect to the procedure. Following the procedure, she will go to the ICU for close observation.
[2020-03-03] MEDS ORDERED: Lorazepam 2 MG/ML VIAL SLOW IVP PRN (16:49)
[2020-03-03] MEDS ORDERED: Scopolamine 1.5 mg/72 hour Patch TD SCH (17:00)
[2020-03-03] MEDS: Morphine 2 MG/ML SYRINGE SLOW IVP PRN ×2 (17:33→20:21)
--- NOTE | 2020-03-03 19:45 | PQF ---
JANUARY ALVARADO MALIK MD [id number] CLINICAL DOCUMENTATION IMPROVEMENT CLARIFICATION FORM: ICD-10 Updated PLEASE DO AN ADDENDUM TO THE PROGRESS NOTE WITH ANY DOCUMENTATION UPDATES OR ADDITIONS AND CARRY THROUGH TO DC SUMMARY. THANK YOU. DATE: 03/03/2020 ATTN: DR. FARLEY Please exercise your independent, professional judgment in responding to the clarification form. Clinical indicators are provided on the bottom of this form for your review. Please check appropriate box(s): [ ] Acute Respiratory Failure: [ ] with Hypoxia [ ] with Hypercapnia [ ] Acute On Chronic Respiratory Failure: [ ] with Hypoxia [ ] with Hypercapnia [ x ] Acute Respiratory Failure due to Acute CVA - Pt was intubated for embolectomy procedure. [ ] Other diagnosis [ ] Unable to determine In addition, please specify: Present on Admission (POA): [ ] Yes [ x ] No [ ] Unable to determine For continuity of documentation, please document condition throughout progress notes and discharge summary. Thank You. CLINICAL INDICATORS - SIGNS / SYMPTOMS / LABS / RESULTS AND LOCATION IN MR 03/02 BLOOD GAS PH 7.55 > PCO2 25.2 03/02 PN (HERNANDEZ) SHE NOW IS AGITATED ON THE VENT AND RECEIVED SOME ATIVAN, SATURATIONS 90% , DECREASED BREATH SOUNDS. 03/03 PN (KIRMANI) PATIENT EXTUBATED AROUND 9 AM, FAMILY OPTED FOR HOSPICE. RISK: ACUTE CVA, ADVANCED AGE ( 89) ], HX HTN ( H&P/ PORSHAHA) 03/01 TREATMENTS: MECHANICAL VENTILATION ( 03/01-03/03) CONTINUOS O2 MONITORING Acute Respiratory Failure: ABG pH < 7.35 or > 7.45; Decreased oxygen saturation (<90% room air or < 95% on oxygen); PCO2 > 50 mm Hg; PO2 < 60 mm Hg; Labored or rapid respirations ARDS: Dx Criteria [[place] ARDS]: Respiratory symptoms within one week of a known clinical insult (e.g. shock, infection, surgery, trauma) Bilateral opacities in CXR/Chest CT not due to CHF or fluid THANK YOU! ISAIAS (This form is maintained as a part of the permanent medical record) 2014 [employer]. All Rights Reserved [email or web address]
[2020-03-03 20:30] VITALS: BP 109/59; TEMP 97.3
[2020-03-03] MEDS: Atorvastatin Calcium 40 MG TAB PO SCH (20:38)
[2020-03-03] MEDS ORDERED: Enoxaparin Sodium 30 MG/0.3 ML SYRINGE SC SCH (21:00)
--- NOTE | 2020-03-04 08:40 | DIS ---
DATE OF ADMISSION: 03/01/2020 DATE OF DISCHARGE: 03/03/2020 DISCHARGE DISPOSITION: Inpatient hospice. CODE STATUS: Do not resuscitate. BRIEF HOSPITAL COURSE: The patient is an 89-year-old female with paroxysmal atrial fibrillation, not an anticoagulation candidate, presented to the hospital with stroke-like symptoms. She received tPA and underwent thrombectomy for occlusion of the proximal M1 segment of the left MCA. She was monitored in the CCU. She was placed on mechanical ventilation for thrombectomy. However, her mentation did not improve over the next 48 hours. She had an EEG, that showed generalized irregular activity, for which she was started on Keppra as well. An echocardiogram showed ejection fraction of 60% to 65% with moderate to severe tricuspid regurgitation. She was seen by multiple consultants including Cardiology, Dr. Gant; Pulmonary, Dr. Zabala; Neurology, Dr. Rainey; as well as Neurosurgery, Dr. Gaxiola. She was also seen by Palliative Care team. The patient was extubated on the day of discharge and was transferred to the medical floor for comfort care. She was accepted for inpatient hospice per family's decision. FINAL DIAGNOSES: 1. 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 2. History of atrial fibrillation, not an anticoagulation candidate. 3. Acute respiratory failure secondary to acute CVA. Please note, the patient was intubated for embolectomy procedure. 4. Mild dementia. 5. Hypertension. 6. Hyperlipidemia. 7. Chronic venous stasis. 8. Diverticulosis. 9. Moderate protein-calorie malnutrition. 10. Chronic kidney disease stage 3. Job ID: [id number]
--- NOTE | 2020-03-04 15:36 | EKG ---
Test Reason : Blood Pressure : / mmHG Vent. Rate : 072 BPM Atrial Rate : 048 BPM P-R Int : 000 ms QRS Dur : 142 ms QT Int : 480 ms P-R-T Axes : 000 -71 073 degrees QTc Int : 525 ms Electronic ventricular pacemaker Confirmed by SIRI CLARKE ([id number]), publications editor HEAVEN SUTTON ([id number]) on 03/04/2020 3:36:10 PM Referred By: Confirmed By:SIRI CLARKE
[2020-03-06 14:06] LABS: Carbon Dioxide 18 mmol/L (23-31)
== END 2020-03-03 21:00 | disposition hospice, inpatient (51) | DRG 23 ==
LOC: ERS 09:53 → CCU 13:11 → T4-B 03-03 12:33
PROVIDERS: ADMIT Internal Medicine Cardiovascular Disease; ATTEND Internal Medicine
PROC: 03CG3Z7 Extirpation of Matter from Intracranial Artery using Stent Retriever, Percutaneous Approach (ICD-10-PCS; principal; 2020-03-01)
PROC: 3E03317 Introduction of Other Thrombolytic into Peripheral Vein, Percutaneous Approach (ICD-10-PCS; 2020-03-01)
DX: I63.512 Cerebral infarction due to unspecified occlusion or stenosis of left middle cerebral artery (principal); R40.2222 Coma scale, best verbal response, incomprehensible words, at arrival to emergency department; J96.00 Acute respiratory failure, unspecified whether with hypoxia or hypercapnia; G81.91 Hemiplegia, unspecified affecting right dominant side; E44.0 Moderate protein-calorie malnutrition; G93.40 Encephalopathy, unspecified; Z66 Do not resuscitate; R29.810 Facial weakness; R40.2352 Coma scale, best motor response, localizes pain, at arrival to emergency department; R40.2142 Coma scale, eyes open, spontaneous, at arrival to emergency department; R29.731 NIHSS score 31; F03.90 Unspecified dementia, unspecified severity, without behavioral disturbance, psychotic disturbance, mood disturbance, and anxiety; M10.9 Gout, unspecified; E78.5 Hyperlipidemia, unspecified; J44.9 Chronic obstructive pulmonary disease, unspecified; I48.0 Paroxysmal atrial fibrillation; K57.90 Diverticulosis of intestine, part unspecified, without perforation or abscess without bleeding; I12.9 Hypertensive chronic kidney disease with stage 1 through stage 4 chronic kidney disease, or unspecified chronic kidney disease; N18.3 Chronic kidney disease, stage 3 (moderate); H35.30 Unspecified macular degeneration; E78.00 Pure hypercholesterolemia, unspecified; I87.8 Other specified disorders of veins; Z95.0 Presence of cardiac pacemaker; Z79.82 Long term (current) use of aspirin; Z90.49 Acquired absence of other specified parts of digestive tract; Z68.21 Body mass index [BMI] 21.0-21.9, adult
CPT/HCPCS: 37184; 70450; 70496; 70498; 71045; 80048; 80053; 80061; 82550; 82805; 83735; 84443; 84484; 85025; 85610; 85730; 93005; 93306; 94002; 94003; 94760; 95712; 95816; 95819; 95957; 96361; 96365; 96374; 99292; C1757; C1769; C1887; J0692; J1100; J1644; J1650; J1953; J2060; J2270; J2405; J3010; J3480; J3490; J7050; Q9967; S0028